=== PATIENT | male | born 1970 | race Caucasian/White ===

== ENCOUNTER 2016-10-11 04:00 | Emergency (ER) | payer BC ==
[~2016-10-11] VITALS: Ht 175.3 cm; Wt 81.6 kg
[~2016-10-11 04:00] MED LIST: ASPI81TA31 PO; ROSU20TA PO
--- NOTE | 2016-10-11 04:10 | NUR ---
Came from triage for coughing x 2 days (started Monday morning), per family had a slight fever x 1 time.Has been c/o of chest pain x 2 days as well. Feels congested and having mucus per pt/family.
--- NOTE | 2016-10-11 04:25 | NUR ---
Seen by Dr. Stevens.
[2016-10-11] MEDS ORDERED: HYDROCODONE BIT/HOMATROPINE 5 ML UDC PO ONE (04:30)
[2016-10-11] MEDS ORDERED: HYDROCODONE BIT/HOMATROPINE 5 ML UDC ONE (04:38)
--- NOTE | 2016-10-11 04:40 | NUR ---
Patient discharged to home in stable conditon. Written and verbal after care instructions including prescriptions were given. Patient verbalizes understanding of instructions.
[2016-10-11 04:46] VITALS: BP 126/89
== END 2016-10-11 04:40 | disposition home or self-care (01) ==
LOC: ER 04:03
DX: J20.9 Acute bronchitis, unspecified (principal); E78.5 Hyperlipidemia, unspecified; F17.200 Nicotine dependence, unspecified, uncomplicated; Z79.82 Long term (current) use of aspirin
CPT/HCPCS: A4663

== ENCOUNTER 2016-11-26 21:09 | Emergency (ER) | payer BC ==
[~2016-11-26] VITALS: Ht 175.3 cm; Wt 81.6 kg
--- NOTE | 2016-11-26 22:30 | NUR ---
TO ROOM 1A FOR ER EVAL. AT BEDSIDE WITH PT NO PAIN
--- NOTE | 2016-11-26 22:34 | NUR ---
LAB WORK DRAWN.PT RESTING COMFORTABLY
[2016-11-26 23:07] LABS: CALCIUM 9.2 mg/dL (8.5-10.1); POTASSIUM 3.5 mmol/L (3.5-5.1)
[2016-11-26 23:09] LABS: BASOPHILS % (AUTO) 0.7 % (0.0-2.0); EOSINOPHILS # (AUTO) 0.1 K/uL (0.0-0.7); EOSINOPHILS % (AUTO) 1.9 % (0.0-7.0); HEMATOCRIT 39.8 % (40-50); HEMOGLOBIN 13.5 G/DL (14.0-18.0); LYMPHOCYTES # (AUTO) 1.9 K/UL (0.8-4.8); MEAN CORPUSCULAR HEMOGLOBIN 29.1 UUG (27.0-31.0); MEAN CORPUSCULAR HGB CONC 34 g/dL (32.0-37.0); MEAN CORPUSCULAR VOLUME 85.7 FL (82.0-92.0); MONOCYTES # (AUTO) 0.5 K/UL (0.1-1.30); MONOCYTES % (AUTO) 9.2 % (0.0-11.0); NEUTROPHILS # (AUTO) 3.5 K/UL (1.8-8.9); NEUTROPHILS % (AUTO) 56.2 % (38.5-71.5); PLATELET COUNT (AUTO) 230 K/UL (150-450); RED BLOOD CELL COUNT(AUTO) 4.64 MIL/UL (4.7-6.1); RED CELL DISTRIBUTION WIDTH 12.7 % (11.5-14.5)
[2016-11-26 23:12] LABS: BILIRUBIN,DIRECT 0.1 mg/dL (0.0-0.2); BILIRUBIN,TOTAL 0.4 mg/dL (0.2-1.0); TOTAL PROTEIN, SERUM 7.9 g/dL (6.4-8.2)
--- NOTE | 2016-11-27 00:15 | NUR ---
PT D/CPatient discharged to home in stable conditon. Written and verbal after care instructions given. Patient verbalizes understanding of instructions. NO PAIN
== END 2016-11-27 00:17 | disposition home or self-care (01) ==
LOC: ER 21:11
DX: R42 Dizziness and giddiness (principal); E78.5 Hyperlipidemia, unspecified; F17.200 Nicotine dependence, unspecified, uncomplicated; R11.0 Nausea; Z79.82 Long term (current) use of aspirin
CPT/HCPCS: 36415; 85025; 93005; A4663

== ENCOUNTER 2018-09-07 03:24 | Emergency (ER) | payer BC ==
[~2018-09-07] VITALS: Ht 175.3 cm; Wt 79.4 kg
[~2018-09-07 03:24] MED LIST changes: -ROSU20TA PO; +ROSU20TA2 PO
--- NOTE | 2018-09-07 03:34 | NUR ---
Pt ambulated in ER with stable gait with the c/o cough, congestion, sore throat, fatigue/body aches x 2 days. Safe environment implemented.
--- NOTE | 2018-09-07 03:36 | NUR ---
Dr. Naranjo at bedside for MSE.
[2018-09-07] MEDS ORDERED: GUAIFENESIN/CODEINE 5 ML LIQUID UDC PO ONE (03:45)
[2018-09-07] MEDS ORDERED: GUAIFENESIN/CODEINE 5 ML LIQUID UDC ONE (03:47)
--- NOTE | 2018-09-07 04:57 | NUR ---
Patient discharged to home in stable conditon. Written and verbal after care instructions given. Patient verbalizes understanding of instructions. Patient ambulated out of ER with stable gait.
[2018-09-07 04:58] VITALS: BP 142/94
== END 2018-09-07 04:58 | disposition home or self-care (01) ==
LOC: ER 03:27
DX: J02.8 Acute pharyngitis due to other specified organisms (principal); B97.89 Other viral agents as the cause of diseases classified elsewhere; I10 Essential (primary) hypertension; E78.5 Hyperlipidemia, unspecified; Z79.82 Long term (current) use of aspirin; Z79.899 Other long term (current) drug therapy
CPT/HCPCS: 71045; 87400; A4663

== ENCOUNTER 2019-10-18 22:00 | Emergency (ER) | payer BC ==
[~2019-10-18] VITALS: Ht 172.7 cm; Wt 79.4 kg
--- NOTE | 2019-10-18 22:10 | NUR ---
Dr. Singer at bedside for MSE.
--- NOTE | 2019-10-18 22:45 | NUR ---
Pt out of ER for CT.
--- NOTE | 2019-10-18 22:50 | NUR ---
Pt back to ER from CT.
--- NOTE | 2019-10-18 23:02 | NUR ---
Patient discharged to home in stable conditon. Written and verbal after care instructions given. Patient verbalizes understanding of instructions. Pt ambulated out of ER with steady gait, no acute signs of distress, VSS, all belongings taken.
[2019-10-18 23:03] VITALS: BP 145/96
== END 2019-10-18 23:03 | disposition home or self-care (01) ==
LOC: ER 22:03
DX: R42 Dizziness and giddiness (principal); R20.2 Paresthesia of skin; E78.5 Hyperlipidemia, unspecified; I10 Essential (primary) hypertension
CPT/HCPCS: 70450; A4663